=== PATIENT | male | born 1970 | race Caucasian/White ===

== ENCOUNTER 2017-06-03 14:00 | Emergency (ER) | payer MEDICAID ==
[~2017-06-03] VITALS: Ht 185.4 cm; Wt 100.0 kg
[~2017-06-03 14:00] MED LIST: METF500T4 PO
[2017-06-03 14:16] VITALS: Ht 185.4 cm; Wt 100.0 kg
--- NOTE | 2017-06-03 16:15 | RADRPT ---
PROCEDURE: Noncontrast CT Head. CLINICAL INDICATION: Left eye double vision. TECHNIQUE: Noncontrast CT of the head was obtained. The administered radiation dose was CTDI vol = 43.77 mGy, DLP = 720.23 mGy-cm. One or more of the following dose reduction techniques were used: Au tomated exposure control, Adjustment of the mA and/or kV according to patient size, or Use of iterat laz reconstruction technique. DICOM images are available. COMPARISON: There are no similar studies submitted for comparison. FINDINGS: The ventricles and sulci are within normal limits. There is a partially empty sella turcica. There is a normal perivascular space within the left infer ior basal ganglia. There is no loss of bonilla-white differentiation to suggest acute territorial infarction. There is no acute intracranial hemorrhage or extra-axial fluid collection. There is no mass effect. No midline shift is identified. The orbits are within normal limits. The paranasal sinuses are well aerated. No destructive osseous lesion is identified. IMPRESSION: 1. No acute intracranial hemorrhage or extra-axial fluid collection. 2. Partially empty sella turcica. Further findings as detailed above. RPTAT: HVF .Pipo Valerio MD, MD Date Time Electronically viewed and signed by .Pipo Valerio MD, on 06/03/2017 16:15 .F/
--- NOTE | 2017-06-03 16:57 | ERD ---
ER Documentation Chief Complaint Chief Complaint lt eye double vision x 2 days HPI This is a 47-year-old male who woke up 3 days ago with double vision. He says he has diplopia only when he looks down. Does not have any monocular double vision only binocular and when looking down. No headache. He does have some slight photophobia to the left eye but no visual changes in clarity whatsoever. No foreign bodies no numbness weakness in the extremities, no problems swallowing or speaking. No prior ophthalmologic history ROS All systems reviewed and are negative except as per history of present illness. Medications Home Meds Active Scripts Metformin* (Glucophage*) 500 Mg Tab, 500 MG PO BID, #60 TAB Prov:SHERICE JOSUE NP 11/22/15 Metformin* (Glucophage*) 500 Mg Tab, 500 MG PO DAILY, #30 TAB Prov:SOCORRO ADAMS MD 04/02/15 Allergies Allergies: Coded Allergies: No Known Allergy (Unverified , 04/02/15) PMhx/Soc Medical and Surgical Hx: pt denies Surgical Hx Anesthesia Reaction: No Hx Neurological Disorder: No Hx Respiratory Disorders: No Hx Cardiac Disorders: No Hx Psychiatric Problems: No Hx Miscellaneous Medical Probl: Yes (DM controlled w/ insulin) Hx Alcohol Use: No Hx Substance Use: No Hx Tobacco Use: No Smoking Status: Never smoker FmHx Family History: No coronary disease Physical Exam Vitals Vital Signs Date Time Temp Pulse Resp B/P Pulse Ox O2 Delivery O2 Flow Rate FiO2 06/03/17 14:16 98.0 88 18 161/87 100 Physical Exam Const: Well-developed, well-nourished Head: Atraumatic, normocephalic Eyes: Normal Conjunctiva, PERRLA, left 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 Neck: Full range of motion. No meningismus, no lymphadenopathy. Resp: Clear to auscultation bilaterally, no wheezing, rhonchi, rales Cardio: Regular rate and rhythm, no murmurs, S1 S2 present Abd: Soft, non tender x 4, non distended. Normal bowel sounds, no guarding or rebound, no pulsitile abdominal masses or bruits Skin: No petechiae or rashes, no ecchymosis , no maculopapular rash Back: No midline or flank tenderness Ext: No cyanosis, or edema, FROM x 4, normal inspection, neurovascularly intact x 4 Neur: Awake and alert, STR 5/5 x 4, sensation intact x 4, no focal findings, cerebellum intact Psych: Normal Mood and Affect Procedures/MDM PROCEDURE: Noncontrast CT Head. CLINICAL INDICATION: Left eye double vision. TECHNIQUE: Noncontrast CT of the head was obtained. The administered radiation dose was CTDI vol = 43.77 mGy, DLP = 720.23 mGy-cm. One or more of the following dose reduction techniques were used: Automated exposure control, Adjustment of the mA and/or kV according to patient size, or Use of iterative reconstruction technique. DICOM images are available. COMPARISON: There are no similar studies submitted for comparison. FINDINGS: The ventricles and sulci are within normal limits. There is a partially empty sella turcica. There is a normal perivascular space within the left inferior basal ganglia. There is no loss of bonilla-white differentiation to suggest acute territorial infarction. There is no acute intracranial hemorrhage or extra-axial fluid collection. There is no mass effect. No midline shift is identified. The orbits are within normal limits. The paranasal sinuses are well aerated. No destructive osseous lesion is identified. IMPRESSION: 1. No acute intracranial hemorrhage or extra-axial fluid collection. 2. Partially empty sella turcica. Further findings as detailed above. RPTAT: HVF .Pipo Valerio MD, Date Time Electronically viewed and signed by .Pipo Valerio MD, on 06/03/2017 16:15 .F/ CC: CHARAN DAVIS. DO The patient is having some binocular diplopia when looking down due to a cranial nerve deficit/ocular muscle defect on the left eye. CT scan of the brain does not show any pathology. MRI is not in-house at this time. Do not feel the patient's had a stroke. Chance of the midbrain stroke is extremely rare, especially without any other symptoms. I will have him return tomorrow morning for MRI of brain with contrast. He was given all instructions to Albanian translation Departure Diagnosis: Primary Impression: Diplopia Condition: Stable Patient Instructions: Diploplia Referrals: SCOUT VILLEGAS MD, APOSTOLOS A. DO Jun 03, 2017 16:57
== END 2017-06-03 17:03 | disposition home or self-care (01) ==
LOC: E/R 14:00
DX: H53.2 Diplopia (principal); E11.9 Type 2 diabetes mellitus without complications; Z79.84 Long term (current) use of oral hypoglycemic drugs; Z79.4 Long term (current) use of insulin
CPT/HCPCS: 70450; Z7502

== ENCOUNTER 2017-06-04 09:35 | Emergency (ER) | payer MEDICAID ==
[~2017-06-04] VITALS: Ht 177.8 cm; Wt 99.2 kg
[2017-06-04 09:37] VITALS: Ht 177.8 cm; Wt 99.2 kg
[2017-06-04] MEDS ORDERED: TETRACAINE 0.5% 4 ML OPH LEFT EYE ONE (10:30)
[2017-06-04 10:36] LABS: BASOPHILS % 0.4 % (0.0-2.0); EOSINOPHILS # 0.1 10^3/ul (0.0-0.5); EOSINOPHILS % 1.9 % (0.0-7.0); HEMOGLOBIN 12.1 g/dl (14.0-18.0); LYMPHOCYTES # 2.4 10^3/ul (0.8-2.9); LYMPHOCYTES % 32.3 % (15.0-51.0); MEAN CORPUSCULAR HEMOGLOBIN 27.1 pg (29.0-33.0); MEAN CORPUSCULAR HGB CONC 32.7 g/dl (32.0-37.0); MEAN CORPUSCULAR VOLUME 82.8 fl (82.0-101.0); MEAN PLATELET VOLUME 9.6 fl (7.4-10.4); MONOCYTE # 0.4 10^3/ul (0.3-0.9); MONOCYTES % 5.9 % (0.0-11.0); NEUTROPHIL # 4.4 10^3/ul (1.6-7.5); NEUTROPHILS % 59.2 % (39.0-77.0); PLATELET COUNT 211 10^3/UL (140-415); RED BLOOD COUNT 4.47 10^6/ul (4.70-6.10); RED CELL DISTRIBUTION WIDTH 13.7 % (11.5-14.5); WHITE BLOOD COUNT 7.4 10^3/ul (4.8-10.8)
[2017-06-04 10:55] LABS: CREATININE 0.88 mg/dl (0.61-1.24); POTASSIUM 3.9 mmol/L (3.5-5.1)
--- NOTE | 2017-06-04 11:34 | ERD ---
ER Documentation Chief Complaint Chief Complaint here for mri, seen yesterday was told to come back HPI 39-year-old male with a history of type 2 diabetes who complained of a 2 day history of left eye diplopia comes back to the emergency room for an MRI. MRI was not available to be done yesterday, the patient was discharged with a normal CT scan of the brain. He reports diplopia when he looks up but also especially when he looks down he does not noted when he covers his left eye and therefore comes in with a patch over his left eye which he placed. He reports mild periorbital left-sided frontal headache that is localized and mild. He denies any current effect, nausea, vomiting, eye trauma. ROS All systems reviewed and are negative except as per history of present illness. Medications Home Meds Active Scripts Metformin* (Glucophage*) 500 Mg Tab, 500 MG PO BID, #60 TAB Prov:SHERICE JOSUE NP 11/22/15 Metformin* (Glucophage*) 500 Mg Tab, 500 MG PO DAILY, #30 TAB Prov:SOCORRO ADAMS MD 04/02/15 Allergies Allergies: Coded Allergies: No Known Allergy (Unverified , 04/02/15) PMhx/Soc Medical and Surgical Hx: pt denies Surgical Hx History of Surgery: No Anesthesia Reaction: No Hx Neurological Disorder: No Hx Respiratory Disorders: No Hx Cardiac Disorders: No Hx Psychiatric Problems: No Hx Miscellaneous Medical Probl: Yes (DM) Hx Alcohol Use: Yes Hx Substance Use: No Hx Tobacco Use: Yes Smoking Status: Former smoker Physical Exam Vitals Vital Signs Date Time Temp Pulse Resp B/P Pulse Ox O2 Delivery O2 Flow Rate FiO2 06/04/17 15:34 98.3 89 18 127/78 100 Room Air 06/04/17 09:37 98.6 94 18 140/78 99 Physical Exam General: Well-developed, well-nourished. The patient appears in no acute distress. HEENT: Head is normocephalic, atraumatic. No scleral icterus. Pupils are equal , round, and reactive. On the left eye, patient has some difficulty with adduction. IOP is 17 and 16. Visual acuity is 20/30, 20/20, 20/25. Neck: Supple. Nontender. Lungs: Clear to auscultation. Normal air movement. Heart: Regular rate and rhythm. S1 and S2 are normal. No murmurs, gallops, or rubs. Abdomen: Soft, nontender, nondistended. Bowel sounds are normoactive. Extremities: No clubbing or cyanosis. Normal pulses. Moving extremities x 4. No weakness. Neurologic: Alert and oriented 3. No focal deficits. Skin: Normal turgor. No rash or lesions. Result Diagram: 06/04/17 1015 06/04/17 1015 Results 24 hrs Laboratory Tests Test 06/04/17 10:15 White Blood Count 7.410^3/ul Red Blood Count 4.4710^6/ul Hemoglobin 12.1g/dl Hematocrit 37.0% Mean Corpuscular Volume 82.8fl Mean Corpuscular Hemoglobin 27.1pg Mean Corpuscular Hemoglobin Concent 32.7g/dl Red Cell Distribution Width 13.7% Platelet Count 73525^3/UL Mean Platelet Volume 9.6fl Neutrophils % 59.2% Lymphocytes % 32.3% Monocytes % 5.9% Eosinophils % 1.9% Basophils % 0.4% Nucleated Red Blood Cells % 0.0/100WBC Neutrophils # 4.410^3/ul Lymphocytes # 2.410^3/ul Monocytes # 0.410^3/ul Eosinophils # 0.110^3/ul Basophils # 0.010^3/ul Nucleated Red Blood Cells # 0.010^3/ul Sodium Level 142mmol/L Potassium Level 3.9mmol/L Chloride Level 104mmol/L Carbon Dioxide Level 29mmol/L Anion Gap 13 Blood Urea Nitrogen 19mg/dl Creatinine 0.88mg/dl Glucose Level 98mg/dl Calcium Level 10.0mg/dl Current Medications Medications (Trade) Dose Ordered Sig/Jo Route PRN Reason Start Time Stop Time Status Last Admin Dose Admin Tetracaine HCl (Tetracaine 0.5% Steri-Unit Tamar) 1 drop ONCE ONCE LEFT EYE 06/04/17 10:30 06/04/17 10:31 DC DIAGNOSTIC IMAGING REPORT Patient: KUNAL DE LEON : 1970 Age: 47 Sex: M MR #: [id number] DOS: 06/04/17 0954 Ordering MD: ROSE VILLALTA PA-C Location: [facility] Room/Bed: PROCEDURE: MRI Brain without and with contrast. CLINICAL INDICATION: Diplopia, left-sided double vision. TECHNIQUE: An MRI of the brain was performed utilizing the following sequences : Sagittal T1-weighted, axial T2-weighted, axial FLAIR, axial T1, coronal GRE axial diffusion-weighted with ADC mapping. Following the uneventful administration of 10 cc Magnevist, postcontrast axial and coronal T1-weighted images were obtained. Images were viewed on a PACS workstation. COMPARISON: Brain CT of 06/03/2017. FINDINGS: No diffusion weighted abnormalities are seen to suggest the presence of acute ischemia or recent infarct. There is no intracranial hemorrhage, mass effect, or midline shift. No extra-axial fluid collection is seen. The ventricles and sulci are minimally enlarged indicative of volume loss. Partially empty sella turcica is noted. A few small foci of T2 and FLAIR hyperintensity are seen in the deep and subcortical white matter, nonspecific in appearance though perhaps reflective of complicated migraines, early microvascular ischemic disease, sequela from prior traumatic or inflammatory insults. The gradient echo images reveal no areas of susceptibility artifact to suggest blood degradation products or abnormal calcification. No abnormal intraparenchymal, meningeal or ependymal enhancement is seen. No abnormal intracranial vascular flow voids are noted. The pituitary and sella reveal no abnormality. The suprasellar cistern is clear. The visualized paranasal sinuses are clear. The mastoid air cells are clear. IMPRESSION: 1. No acute intracranial hemorrhage, infarction or mass. No intracranial enhancing abnormality. 2. A few small foci of white matter signal abnormality, nonspecific in appearance though perhaps reflective of complicated migraines, early microvascular ischemic disease, sequela from prior traumatic or inflammatory insults. 3. Partially empty sella turcica. 4. Minimal generalized cerebral volume loss. RPTAT: GG .Delicia Hernandes MD, MD Date Time Electronically viewed and signed by .Delicia Hernandes MD, MD on 06/04/2017 15: 03 .N/ CC: ROSE VILLALTA PA-C Procedures/MDM ED COURSE: Patient's previous visit was reviewed, CT scan of the brain was negative for intracranial hemorrhage or mass-effect or midline shift. MEDICAL DECISION MAKIN-year-old male comes in with left eye diplopia that began 2 days ago. Patient 's visual acuity as well as his pressures are intact intact. No signs of infectious origin. It was noted by the previous ER physician that there was a deficit of the cranial nerves III, with a left rectus medialis as he has difficulty with adduction. MRI shows no acute findings including mass-effect, intracranial hemorrhage. The patient was given copies of the MRI results, he was advised that he needs to see ophthalmology today. He was advised to go to either [facility] or [facility], for ophthalmologic evaluation. Other differentials include, migraine, multiple sclerosis, cluster headache, retinal detachment, vitreous hemorrhage. The case was reviewed and discussed with Dr. Parra who agrees with the plan of care including labs, treatment, and advanced imaging as appropriate. Departure Diagnosis: Primary Impression: Diplopia Condition: ROSE Novoa PA-C Jun 04, 2017 11:34
--- NOTE | 2017-06-04 15:03 | RADRPT ---
PROCEDURE: MRI Brain without and with contrast. CLINICAL INDICATION: Diplopia, left-sided double vision. TECHNIQUE: An MRI of the brain was performed utilizing the following sequences: Sagittal T1-weigh meghan, axial T2-weighted, axial FLAIR, axial T1, coronal GRE axial diffusion-weighted with ADC mapping . Following the uneventful administration of 10 cc Magnevist, postcontrast axial and coronal T1-weig hted images were obtained. Images were viewed on a PACS workstation. COMPARISON: Brain CT of 06/03/2017. FINDINGS: No diffusion weighted abnormalities are seen to suggest the presence of acute ischemia or recent inf arct. There is no intracranial hemorrhage, mass effect, or midline shift. No extra-axial fluid col lection is seen. The ventricles and sulci are minimally enlarged indicative of volume loss. Partial ly empty sella turcica is noted. A few small foci of T2 and FLAIR hyperintensity are seen in the deep and subcortical white matter, n onspecific in appearance though perhaps reflective of complicated migraines, early microvascular isc hemic disease, sequela from prior traumatic or inflammatory insults. The gradient echo images reveal no areas of susceptibility artifact to suggest blood degradation products or abnormal calcification . No abnormal intraparenchymal, meningeal or ependymal enhancement is seen. No abnormal intracranial vascular flow voids are noted. The pituitary and sella reveal no abnormali ty. The suprasellar cistern is clear. The visualized paranasal sinuses are clear. The mastoid air cells are clear. IMPRESSION: 1. No acute intracranial hemorrhage, infarction or mass. No intracranial enhancing abnormality. 2. A few small foci of white matter signal abnormality, nonspecific in appearance though perhaps re flective of complicated migraines, early microvascular ischemic disease, sequela from prior traumati c or inflammatory insults. 3. Partially empty sella turcica. 4. Minimal generalized cerebral volume loss. RPTAT: GG .Delicia Hernandes MD, MD Date Time Electronically viewed and signed by .Delicia Hernandes MD, MD on 06/04/2017 15:03 .N/
[2017-06-04 15:34] VITALS: BP 127/78; PULSE 89; RESP 18; TEMP 98.3
== END 2017-06-04 15:39 | disposition home or self-care (01) ==
LOC: FTE 09:35
DX: H53.2 Diplopia (principal); E11.9 Type 2 diabetes mellitus without complications; Z87.891 Personal history of nicotine dependence; Z79.84 Long term (current) use of oral hypoglycemic drugs
CPT/HCPCS: 36415; 70553; 80048; 85025; Z7502

== ENCOUNTER 2017-12-10 18:20 | Emergency (ER) | END 2017-12-10 21:29 | disposition home or self-care (01) ==

== ENCOUNTER 2018-01-29 02:42 | Emergency (ER) | END 2018-01-29 06:51 | disposition home or self-care (01) ==